=== PATIENT | female | born 1965 | race Caucasian/White ===

== ENCOUNTER 2016-09-20 15:29 | Emergency (ER) | payer OTHER ==
--- NOTE | 2016-09-20 16:23 | UC ---
Throat Pain/Nasal Yeison HPI - HPI Summary HPI Summary: complaint of nasal congestion and cough that started 4 days ago monday morning woke up with headache and neck pain took some ibuprofen without relief monday morning having chills, fever, states her temp was low today felt nauseated but no vomiting, denies photophobia tried some emergencyC sees Dr Quiroz had appt today but she didn't go because of the snow. - History of Current Complaint Chief Complaint: UCGeneralIllness Stated Complaint: [place],CHILLS,BELOW NORMAL TEMP Time Seen by Provider: 09/20/16 16:14 Hx Obtained From: Patient Hx Last Menstrual Period: 2-3 wks ago - Allergies/Home Medications Allergies/Adverse Reactions: Allergies Allergy/AdvReac Type Severity Reaction Status Date / Time Budesonide [From Symbicort] Allergy Tachycardia Verified 09/20/16 15:46 Formoterol [From Symbicort] Allergy Tachycardia Verified 09/20/16 15:46 Home Medications: Home Medications Allergy Medication 2 tab DAILY 09/20/16 [History Confirmed 09/20/16] PMH/Surg Hx/FS Hx/Imm Hx Previously Healthy: Yes Respiratory History Of: Reports: Asthma - Surgical History Surgical History: Yes Surgery Procedure, Year, and Place: uterine ablation 03/2011 - Family History Known Family History: Positive: Hypertension - mother Negative: Cardiac Disease, Diabetes - Social History Lives: With Family Alcohol Use: Rare Substance Use Type: None Smoking Status (MU): Never Smoked Tobacco - Immunization History Most Recent Influenza Vaccination: none Review of Systems Constitutional: Chills Skin: Negative Eyes: Negative ENT: Nasal Discharge Respiratory: Cough Cardiovascular: Negative Gastrointestinal: Other - nausea Genitourinary: Negative Motor: Negative Neurovascular: Negative Musculoskeletal: Negative Neurological: Negative Psychological: Negative All Other Systems Reviewed And Are Negative: Yes Physical Exam Triage Information Reviewed: Yes Appearance: No Pain Distress, Well-Nourished Vital Signs: Initial Vital Signs Temp 98.5 F 09/20/16 15:38 Pulse 90 09/20/16 15:38 Resp 17 09/20/16 15:38 BP 179/119 09/20/16 15:38 Pulse Ox 99 09/20/16 15:38 Vital Signs Reviewed: Yes Eyes: Positive: Conjunctiva Clear, Other: - PERRL ENT: Positive: Pharynx normal, Nasal congestion, TMs normal Neck: Positive: No Lymphadenopathy. Negative: Nuchal Rigidity Respiratory: Positive: Lungs clear, Normal breath sounds, No respiratory distress Cardiovascular: Positive: RRR, No Murmur, Pulses Normal Abdomen Description: Positive: Nontender, Soft Bowel Sounds: Positive: Present Musculoskeletal: Positive: No Edema, Edema @ Neurological: Positive: Alert, Other: - CN ll-[id number] normal negative [place] Psychological Exam: Normal Skin Exam: Normal Throat Pain/Nasal Course/Dx - Differential Dx/Diagnosis Provider Diagnoses: elevated blood pressure,URI Discharge - Discharge Plan Condition: Stable Disposition: HOME Patient Education Materials: Upper Respiratory Infection (ED), Hypertension (ED ), Acute Headache (ED) Referrals: Ed Rizo MD [Primary Care Provider] - Additional Instructions: start tramadol as directed for your headache It is important that you call Dr Quiroz to have your high blood pressure evaluated in the next several days Increase fluids and rest Please review your discharge instructions. . If your symptoms do not improve please call your primary care provider or return to urgent care or the emergency room.
[2016-09-20] MEDS ORDERED: Acetaminophen TAB* 325 MG PO ONE (16:28)
[2016-09-20 17:22] VITALS: BP 154/108
== END 2016-09-20 17:22 | disposition home or self-care (01) ==
LOC: UCCORT 15:29
DX: R03.0 Elevated blood-pressure reading, without diagnosis of hypertension (principal); J06.9 Acute upper respiratory infection, unspecified; Z88.8 Allergy status to other drugs, medicaments and biological substances
CPT/HCPCS: 87502; 99202; A9270-GY; G0463

== ENCOUNTER 2017-03-15 09:48 | Emergency (ER) | payer OTHER ==
[2017-03-15 10:06] VITALS: BP 149/101
[2017-03-15] MEDS ORDERED: Ondansetron TAB* 4 MG PO ONE (10:09)
[2017-03-15] MEDS ORDERED: Ondansetron ODT TAB* 4 MG ONE (10:19)
--- NOTE | 2017-03-15 10:28 | UC ---
Abdominal Pain Female HPI - History of Current Complaint Chief Complaint: UCGI Stated Complaint: UPPER STOMACH PAIN DIARRHEA VOMITING Time Seen by Provider: 03/15/17 10:03 Hx Obtained From: Patient, Family/Sensitizer Hx Last Menstrual Period: 2-3 wks ago ?: No Onset/Duration: Gradual Onset, Lasting Days Timing: Constant Severity Initially: Moderate Severity Currently: Severe Location: Epigastric Radiates: No Character: Aching, Sharp Aggravating Factor(s): Nothing Alleviating Factor(s): Nothing Associated Signs and Symptoms: Positive: Decreased Appetite, Nausea, Vomiting, Diarrhea. Negative: Fever, Back Pain, Constipation, Blood in Stool, Urinary Symptoms, Vaginal Discharge Allergies/Adverse Reactions: Allergies Allergy/AdvReac Type Severity Reaction Status Date / Time Budesonide [From Symbicort] Allergy Tachycardia Verified 03/15/17 09:56 Formoterol [From Symbicort] Allergy Tachycardia Verified 03/15/17 09:56 Home Medications: Home Medications Metoprolol Tartrate TAB* [Lopressor TAB*] 1 tab DAILY 03/15/17 [History Confirmed 03/15/17] PMH/Surg Hx/FS Hx/Imm Hx Previously Healthy: No - HTN - Surgical History Surgical History: Yes Surgery Procedure, Year, and Place: uterine ablation 03/2011 - Family History Known Family History: Positive: Hypertension - mother Negative: Cardiac Disease, Diabetes - Social History Alcohol Use: None Substance Use Type: None Smoking Status (MU): Never Smoked Tobacco - Immunization History Most Recent Influenza Vaccination: NONE 2015 Most Recent Tetanus Shot: UNKNOWN Review of Systems Gastrointestinal: Abdominal Pain, Vomiting, Diarrhea, Nausea All Other Systems Reviewed And Are Negative: Yes Physical Exam Triage Information Reviewed: Yes Appearance: Pain Distress Vital Signs: Initial Vital Signs Temp 98.8 F 03/15/17 09:58 Pulse 87 03/15/17 09:58 Resp 18 03/15/17 09:58 BP 149/101 03/15/17 09:58 Pulse Ox 100 03/15/17 09:58 Vital Signs Reviewed: Yes Eye Exam: Normal ENT Exam: Normal Neck exam: Normal Respiratory Exam: Normal Cardiovascular Exam: Normal Abdomen Description: Positive: Guarding, Peritoneal Signs. Negative: CVA Tenderness (R), CVA Tenderness (L), Distended Musculoskeletal Exam: Normal Neurological Exam: Normal Psychological Exam: Normal Skin Exam: Normal Abd Pain Female Course/Dx - Differential Dx/Diagnosis Provider Diagnoses: Severe abd pain Discharge - Discharge Plan Condition: Guarded Disposition: HOME
== END 2017-03-15 10:30 | disposition short-term general hospital (02) ==
LOC: UCCORT 09:48
DX: R10.9 Unspecified abdominal pain (principal)
CPT/HCPCS: 99212; A9270-GY; G0463

== ENCOUNTER 2018-06-23 09:01 | Emergency (ER) | payer OTHER ==
[2018-06-23 09:45] VITALS: BP 155/95
--- NOTE | 2018-06-23 10:07 | UC ---
Throat Pain/Nasal Yeison HPI - HPI Summary HPI Summary: Pt presents with c/o sudden onset of ST, body aches X 4 days, pt reports cough began last night. - History of Current Complaint Chief Complaint: UCRespiratory Stated Complaint: SORE THROAT Time Seen by Provider: 06/23/18 09:18 Hx Obtained From: Patient Hx Last Menstrual Period: UTERINE ABLATION ?: No Onset/Duration: Sudden Onset, Lasting Days, Still Present Severity: Moderate Pain Intensity: 8 Cough: Sputum Appears - clear Associated Signs & Symptoms: Positive: Dysphagia Related History: Seasonal Allergies - Epiglottits Risk Factors Epiglottis Risk Factors: Sudden Onset - Allergies/Home Medications Allergies/Adverse Reactions: Allergies Allergy/AdvReac Type Severity Reaction Status Date / Time budesonide [From Symbicort] Allergy Unknown Tachycardia Verified 06/23/18 09:36 formoterol [From Symbicort] Allergy Unknown Tachycardia Verified 06/23/18 09:36 Home Medications: Home Medications Albuterol HFA INHALER* [Ventolin HFA Inhaler*] 2 puff INH Q4H PRN 06/23/18 [ History Confirmed 06/23/18] Rx Nasal [place] 06/23/18 [History] PMH/Surg Hx/FS Hx/Imm Hx Previously Healthy: Yes - Surgical History Surgical History: Yes Surgery Procedure, Year, and Place: uterine ablation 03/2011 - Family History Known Family History: Positive: Hypertension - mother Negative: Cardiac Disease, Diabetes - Social History Occupation: Employed Full-time Lives: With Family Alcohol Use: Occasionally Substance Use Type: None Smoking Status (MU): Never Smoked Tobacco Have You Smoked in the Last Year: No - Immunization History Most Recent Influenza Vaccination: NONE 2015 Most Recent Tetanus Shot: UNKNOWN Review of Systems Constitutional: Fatigue Skin: Negative ENT: Sore Throat Respiratory: Cough Cardiovascular: Negative Gastrointestinal: Negative Genitourinary: Negative Motor: Negative Neurovascular: Negative Musculoskeletal: Myalgia Neurological: Negative Psychological: Negative Is Patient Immunocompromised?: No All Other Systems Reviewed And Are Negative: Yes Physical Exam Triage Information Reviewed: Yes Appearance: Ill-Appearing Vital Signs: Initial Vital Signs Temp 98.5 F 06/23/18 09:38 Pulse 88 06/23/18 09:38 Resp 18 06/23/18 09:38 BP 155/95 06/23/18 09:38 Pulse Ox 99 11/03/18 09:38 Vital Signs Reviewed: Yes Eye Exam: Normal ENT: Positive: Pharyngeal erythema Dental Exam: Normal Neck exam: Normal Respiratory Exam: Normal Cardiovascular Exam: Normal Musculoskeletal Exam: Normal Neurological Exam: Normal Psychological Exam: Normal Skin Exam: Normal Diagnostics - Laboratory Diagnostic Studies Completed/Ordered: rapid strep: negative. Throat Pain/Nasal Course/Dx - Differential Dx/Diagnosis Differential Diagnosis/HQI/PQRI: Influenza, Pharyngitis, Tonsillitis, URI Provider Diagnoses: tonsillitis Discharge - Sign-Out/Discharge Documenting (check all that apply): Patient Departure All imaging exams completed and their final reports reviewed: No Studies - Discharge Plan Condition: Stable Disposition: HOME Prescriptions: Amoxicillin PO (*) [Amoxicillin 500 MG CAP*] 500 mg PO Q12H #20 cap Fluconazole [Diflucan 150 MG (NF)] 150 mg PO ONCE #2 tab Patient Education Materials: Tonsillitis (ED) Referrals: Ed Rizo MD [Primary Care Provider] - If Needed - Billing Disposition and Condition Condition: STABLE Disposition: Home
== END 2018-06-23 10:44 | disposition home or self-care (01) ==
LOC: UCCORT 09:01
DX: B00.2 Herpesviral gingivostomatitis and pharyngotonsillitis (principal)
CPT/HCPCS: 87651; 99212; G0463